=== PATIENT | female | born 1935 | race Caucasian/White ===

== ENCOUNTER 2019-10-27 11:27 | Inpatient (IN) | payer MEDICARE, MEDICAID ==
[~2019-10-27] VITALS: Ht 167.6 cm; Wt 70.3 kg
--- NOTE | 2019-10-27 11:43 | NUR ---
BIB EMS FROM [facility] FOR A FIB W/ RVR 70-180. PT STATES SHE HAD SOB STARTED AT MIDNIGHT AND PT HAS BEEN USING HER HOME O2 ON 4L NC INSTEAD OF 3L NC BASELINE. CXR AT [facility] SHOWED PNA. HX COPD AND A FIB. DENIES CP. VS COURTESY CLERK BP 108/62, HR 60-130, RR 22 UNLABORED. EKG COMPLETED. PT RESTING ON GURNEY. NADN. VSS. MONITORS APPLIED. ERP DR. GILSE AT BEDSIDE.
--- NOTE | 2019-10-27 11:51 | NUR ---
PT WAS GIVEN AN ALBUTEROL TREATMENT, LOVENOX, SOLUMEDROL, 1L NS, AND ZOFRAN AT [facility]. WAS NOT GIVEN ANY ABX. ERP AWARE.
--- NOTE | 2019-10-27 12:06 | NUR ---
REPORT GIVEN TO KASANDRA PEDERSON.
[2019-10-27 12:08] LABS: MEAN CORPUSCULAR HEMOGLOBIN 30.6 pg (27.0-34.8); MEAN CORPUSCULAR HGB CONC 32.8 g/dL (32.4-35.8); MEAN CORPUSCULAR VOLUME 93.2 fL (80-100); MEAN PLATELET VOLUME 9.8 fL (7.4-10.4); PLATELET COUNT 174 x10^3/uL (130-400); RED BLOOD COUNT 4.73 x10^6/uL (3.82-5.3); RED CELL DISTRIBUTION WIDTH 14.4 % (9.6-15.2)
[2019-10-27 12:19] LABS: ALANINE AMINOTRANSFERASE 23 U/L (12-78); ALBUMIN 3.1 g/dL (3.4-5.0); ANION GAP 10 mmol/L (5-15); CALCIUM 8.1 mg/dL (8.5-10.1); CHLORIDE 104 mmol/L (98-107); CREATININE 1.31 mg/dL (0.55-1.02)
[2019-10-27 12:24] LABS: ALKALINE PHOSPHATASE 80 U/L (45-117); BILIRUBIN,TOTAL 0.4 mg/dL (0.2-1.0); TOTAL PROTEIN 6.3 g/dL (6.4-8.2); TROPONIN I < 0.015 ng/mL (0.000-0.045)
[2019-10-27] MEDS ORDERED: CEFTRIAXONE PMX 1GM/50ML 50 ML IV ONE (12:30)
[2019-10-27] MEDS ORDERED: SODIUM CHLORIDE 0.9% 1,000ML IVBOLUS ONE (12:30)
[2019-10-27] MEDS ORDERED: DILTIAZEM 5 MG/ML, 5ML IVPush ONE (12:30)
[2019-10-27] MEDS ORDERED: PLEASE ENTER HEIGHT AND WEIGHT MC SCH (12:30)
[2019-10-27] MEDS ORDERED: AZITHROMYCIN 500 MG in SODIUM CHLORIDE 0.9% 250 ML IV ONE (12:30)
[2019-10-27] MEDS ORDERED: CEFTRIAXONE PMX 1GM/50ML 50 ML ONE (12:36)
[2019-10-27] MEDS ORDERED: DILTIAZEM 5 MG/ML, 5ML ONE (12:37)
[2019-10-27 12:41] LABS: BASOPHILS % (AUTO) 0 % (0-1); EOSINOPHILS % (AUTO) 0 % (1-7); LYMPHOCYTES # (AUTO) 0.22 x10^3/uL (1-3.4); LYMPHOCYTES % (AUTO) 3 % (22-44); MD SCAN; MONOCYTES # (AUTO) 0.09 x10^3/uL (0.2-0.8); MONOCYTES % (AUTO) 1 % (2-9); NEUTROPHILS # (AUTO) 7.59 x10^3/uL (1.8-6.8); NEUTROPHILS % (AUTO) 96 % (42-75)
--- NOTE | 2019-10-27 12:48 | NUR ---
Pt medicated per emar. VSS
--- NOTE | 2019-10-27 13:13 | NUR ---
Pt given a meal tray and at this time has tolerated po intake well.
--- NOTE | 2019-10-27 13:25 | NUR ---
pt medicated per emar.
[2019-10-27] MEDS ORDERED: LABETALOL 5MG/ML, 20ML IVPush PRN (13:30)
[2019-10-27] MEDS: HEPARIN 5,000 UNITS/ML, 1ML SQ SCH ×2 (13:30→20:51)
[2019-10-27] MEDS ORDERED: hydrALAzine 20 MG/ML, 1ML IVPush PRN (13:30)
[2019-10-27] MEDS ORDERED: ONDANSETRON 2MG/ML, 2ML IVPush PRN (13:30)
[2019-10-27] MEDS: CEFTRIAXONE PMX 1GM/50ML 50 ML IV SCH (13:30)
[2019-10-27] MEDS ORDERED: ALBUTEROL/IPRATROPIUM 2.5MG/0.5MG, 3 ML HHN SCH (13:30)
[2019-10-27] MEDS ORDERED: ONDANSETRON ODT 4 MG PO PRN (13:30)
[2019-10-27] MEDS ORDERED: SODIUM CHLORIDE 0.9% 1,000 ML IV SCH (13:30)
[2019-10-27] MEDS ORDERED: SIMV10TA3 PO (13:47)
[2019-10-27] MEDS ORDERED: LORA-445 PO (13:47)
[2019-10-27] MEDS ORDERED: HYDR-3240 PO (13:47)
[2019-10-27] MEDS ORDERED: ALBU0.63 NEB (13:47)
[2019-10-27] MEDS ORDERED: POTA99TA24 PO (13:47)
[2019-10-27] MEDS ORDERED: DILT60CA PO (13:47)
[2019-10-27] MEDS ORDERED: GABA300C10 PO (13:47)
[2019-10-27] MEDS ORDERED: FURO20TA3 PO (13:47)
[2019-10-27] MEDS ORDERED: methylPREDNISolone SOD SUCC 125 MG/2 ML ONE (13:53)
[2019-10-27] MEDS ORDERED: HEPARIN 5,000 UNITS/ML, 1ML ONE (13:53)
[2019-10-27] MEDS: methylPREDNISolone SOD SUCC 125 MG/2 ML IVPush SCH ×2 (13:56→20:51)
--- NOTE | 2019-10-27 13:57 | NUR ---
report to johan SLAUGHTER
--- NOTE | 2019-10-27 13:58 | NUR ---
spoke with provider regarding heparin dose. Pt recieved in [facility]. Per md austin to hold this dose until next dose.
[2019-10-27 14:18] VITALS: BP 111/67
[2019-10-27 14:29] LABS: TROPONIN I < 0.015 ng/mL (0.000-0.045)
[2019-10-27] MEDS ORDERED: ACETAMINOPHEN 325 MG TABLET ONE (15:24)
[2019-10-27] MEDS ORDERED: ACETAMINOPHEN 325 MG TABLET PO PRN (15:30)
[2019-10-27 15:51] LABS: RAPID INFLUENZA A Negative (Negative); RAPID INFLUENZA B Negative (Negative)
[2019-10-27] MEDS ORDERED: MAGNESIUM SULFATE 1 GM in SODIUM CHLORIDE 0.9% 50 ML IV ONE (16:00)
[2019-10-27] MEDS: DOXYCYCLINE 100 MG in DEXTROSE 5% 250 ML IV SCH (16:34)
[2019-10-27] MEDS: POTASSIUM CHLORIDE 20 MEQ TAB.ER.PRT PO SCH (17:24)
[2019-10-27] MEDS: GUAIFENESIN 200 MG TABLET PO SCH ×2 (17:24→20:51)
[2019-10-27 19:36] LABS: TROPONIN I < 0.015 ng/mL (0.000-0.045)
[2019-10-27] MEDS: METOPROLOL TARTRATE 25 MG TABLET PO SCH (20:52)
[2019-10-27 20:53] VITALS: BP 145/74
[2019-10-27] MEDS ORDERED: DOXYCYCLINE 100MG TABLET PO SCH (21:00)
[2019-10-27] MEDS ORDERED: METOPROLOL TARTRATE 25 MG TABLET PO SCH (21:00)
[2019-10-28 01:11] VITALS: BP 162/81
[2019-10-28] MEDS ORDERED: NITROGLYCERIN 0.4 MG BOTTLE (25 TABS) SL PRN (01:30)
[2019-10-28] MEDS ORDERED: NITROGLYCERIN 0.4 MG/SPRAY SL PRN (01:30)
[2019-10-28] MEDS ORDERED: ALBUTEROL SULFATE 2.5 MG/3 ML ONE (01:34)
[2019-10-28] MEDS: ALBUTEROL/IPRATROPIUM 2.5MG/0.5MG, 3 ML NPPB PRN ×3 (01:40→21:25)
[2019-10-28 01:42] LABS: TROPONIN I < 0.015 ng/mL (0.000-0.045)
[2019-10-28] MEDS ORDERED: FUROSEMIDE 20 MG/2 ML IV ONE (03:00)
[2019-10-28] MEDS: methylPREDNISolone SOD SUCC 125 MG/2 ML IVPush SCH ×4 (03:05→21:15)
[2019-10-28] MEDS: DOXYCYCLINE 100 MG in DEXTROSE 5% 250 ML IV SCH ×2 (04:00→15:53)
[2019-10-28] MEDS: HEPARIN 5,000 UNITS/ML, 1ML SQ SCH ×3 (05:31→21:37)
[2019-10-28] MEDS: GUAIFENESIN 200 MG TABLET PO SCH ×4 (05:31→21:00)
[2019-10-28 06:24] LABS: BASOPHILS % (AUTO) 0 % (0-1); EOSINOPHILS # (AUTO) 0.04 x10^3/uL (0-0.4); EOSINOPHILS % (AUTO) 1 % (1-7); LYMPHOCYTES # (AUTO) 0.59 x10^3/uL (1-3.4); LYMPHOCYTES % (AUTO) 8 % (22-44); MD NO; MEAN CORPUSCULAR HEMOGLOBIN 30.2 pg (27.0-34.8); MEAN CORPUSCULAR HGB CONC 32.3 g/dL (32.4-35.8); MEAN CORPUSCULAR VOLUME 93.6 fL (80-100); MEAN PLATELET VOLUME 9.9 fL (7.4-10.4); MONOCYTES # (AUTO) 0.27 x10^3/uL (0.2-0.8); MONOCYTES % (AUTO) 3 % (2-9); NEUTROPHILS # (AUTO) 6.94 x10^3/uL (1.8-6.8); NEUTROPHILS % (AUTO) 89 % (42-75); PLATELET COUNT 200 x10^3/uL (130-400); RED BLOOD COUNT 4.95 x10^6/uL (3.82-5.3); RED CELL DISTRIBUTION WIDTH 14.6 % (9.6-15.2)
[2019-10-28 06:36] LABS: ALBUMIN 3.4 g/dL (3.4-5.0); ANION GAP 6 mmol/L (5-15); CALCIUM 9.2 mg/dL (8.5-10.1); CHLORIDE 104 mmol/L (98-107)
[2019-10-28 06:40] LABS: ALANINE AMINOTRANSFERASE 50 U/L (12-78); ALKALINE PHOSPHATASE 86 U/L (45-117); BILIRUBIN,TOTAL 0.4 mg/dL (0.2-1.0); CREATININE 1.36 mg/dL (0.55-1.02); TOTAL PROTEIN 7.2 g/dL (6.4-8.2)
[2019-10-28 06:54] VITALS: BP 141/91
[2019-10-28] MEDS: ASPIRIN 81 MG TABLET CHEW PO SCH (08:25)
[2019-10-28] MEDS: POTASSIUM CHLORIDE 20 MEQ TAB.ER.PRT PO SCH ×2 (08:25→15:53)
[2019-10-28] MEDS: METOPROLOL TARTRATE 25 MG TABLET PO SCH ×2 (08:26→21:16)
[2019-10-28] MEDS ORDERED: MAGNESIUM SULFATE PMX 2GM/50ML 50 ML IV ONE (09:30)
[2019-10-28] MEDS ORDERED: PROCHLORPERAZINE 5 MG TABLET PO PRN (12:30)
[2019-10-28] MEDS: CEFTRIAXONE PMX 1GM/50ML 50 ML IV SCH (14:08)
[2019-10-28 15:57] VITALS: BP 157/96
[2019-10-28 18:38] VITALS: BP 155/98
[2019-10-28] MEDS: MELATONIN 3 MG TABLET PO PRN (21:16)
[2019-10-29 01:56] VITALS: BP 156/105
[2019-10-29] MEDS ORDERED: LORazepam 2 MG/ML, 1ML IVPush ONE (02:30)
[2019-10-29] MEDS ORDERED: LORazepam 2 MG/ML, 1ML ONE (02:35)
[2019-10-29] MEDS: methylPREDNISolone SOD SUCC 125 MG/2 ML IVPush SCH ×3 (03:47→22:17)
[2019-10-29] MEDS: DOXYCYCLINE 100 MG in DEXTROSE 5% 250 ML IV SCH ×2 (04:05→16:10)
[2019-10-29 04:17] LABS: BASOPHILS # (AUTO) 0.01 x10^3/uL (0-0.1); BASOPHILS % (AUTO) 0 % (0-1); EOSINOPHILS % (AUTO) 0 % (1-7); LYMPHOCYTES # (AUTO) 0.81 x10^3/uL (1-3.4); LYMPHOCYTES % (AUTO) 5 % (22-44); MD NO; MEAN CORPUSCULAR HGB CONC 32.9 g/dL (32.4-35.8); MEAN CORPUSCULAR VOLUME 91.3 fL (80-100); MEAN PLATELET VOLUME 10.2 fL (7.4-10.4); MONOCYTES # (AUTO) 0.63 x10^3/uL (0.2-0.8); MONOCYTES % (AUTO) 4 % (2-9); NEUTROPHILS # (AUTO) 14.83 x10^3/uL (1.8-6.8); NEUTROPHILS % (AUTO) 91 % (42-75); PLATELET COUNT 223 x10^3/uL (130-400); RED BLOOD COUNT 4.67 x10^6/uL (3.82-5.3); RED CELL DISTRIBUTION WIDTH 14.7 % (9.6-15.2)
[2019-10-29 04:26] LABS: ALANINE AMINOTRANSFERASE 183 U/L (12-78); ALBUMIN 3.1 g/dL (3.4-5.0); ANION GAP 8 mmol/L (5-15); CALCIUM 9.3 mg/dL (8.5-10.1); CHLORIDE 105 mmol/L (98-107); CREATININE 1.26 mg/dL (0.55-1.02)
[2019-10-29 04:28] LABS: ALKALINE PHOSPHATASE 82 U/L (45-117); BILIRUBIN,TOTAL 0.2 mg/dL (0.2-1.0); TOTAL PROTEIN 6.5 g/dL (6.4-8.2)
[2019-10-29 06:26] VITALS: BP 124/69
[2019-10-29] MEDS: ALBUTEROL/IPRATROPIUM 2.5MG/0.5MG, 3 ML NPPB SCH ×5 (07:00→22:36)
[2019-10-29] MEDS: GUAIFENESIN 200 MG TABLET PO SCH ×4 (07:01→22:17)
[2019-10-29] MEDS: HEPARIN 5,000 UNITS/ML, 1ML SQ SCH (07:01)
[2019-10-29] MEDS ORDERED: LORazepam 0.5MG TABLET PO SCH (08:00)
[2019-10-29] MEDS ORDERED: HYDROcodone/APAP 5/325 TABLET PO PRN (08:00)
[2019-10-29] MEDS: POTASSIUM CHLORIDE 20 MEQ TAB.ER.PRT PO SCH ×2 (08:16→16:10)
[2019-10-29] MEDS: FUROSEMIDE 20 MG TABLET PO SCH (08:17)
[2019-10-29] MEDS: ASPIRIN 81 MG TABLET CHEW PO SCH (08:17)
[2019-10-29] MEDS ORDERED: POTASSIUM GLUCONATE MC SCH (08:30)
[2019-10-29] MEDS ORDERED: HEPARIN 5,000 UNITS/ML, 1ML IV PRN (09:00)
[2019-10-29] MEDS ORDERED: DILTIAZEM 60 MG CAP.ER.12H PO SCH (09:00)
[2019-10-29] MEDS ORDERED: POTASSIUM GLUCONATE PO SCH (09:00)
[2019-10-29] MEDS: HEPARIN 25,000 UNITS/500ML PMX 500 ML IV PRN (10:25)
[2019-10-29 12:20] VITALS: BP 169/86
[2019-10-29] MEDS ORDERED: DILT180C53 PO (13:02)
[2019-10-29] MEDS ORDERED: FLUT1DIS3 INH (13:02)
[2019-10-29] MEDS: CEFTRIAXONE PMX 1GM/50ML 50 ML IV SCH (13:22)
[2019-10-29] MEDS ORDERED: methylPREDNISolone SOD SUCC 125 MG/2 ML IVPush SCH (13:30)
[2019-10-29] MEDS: LORazepam 0.5MG TABLET PO PRN (14:25)
[2019-10-29] MEDS: BUDESONIDE 0.5 MG/2 ML INHA INH SCH ×2 (16:33→22:36)
[2019-10-29 20:10] VITALS: BP_SYST 172; BP_SYST 179; BP_DIAS 77; BP_DIAS 98
[2019-10-29] MEDS: GABAPENTIN 300 MG CAPSULE PO SCH (22:17)
[2019-10-29] MEDS: DILTIAZEM 90 MG CAP.ER.12H PO SCH (22:18)
[2019-10-29] MEDS: SIMVASTATIN 10 MG TABLET PO SCH (22:18)
[2019-10-29 22:23] VITALS: BP 161/98
[2019-10-29] MEDS: MELATONIN 3 MG TABLET PO PRN (22:28)
[2019-10-30 00:49] VITALS: BP 147/96
[2019-10-30] MEDS: ALBUTEROL/IPRATROPIUM 2.5MG/0.5MG, 3 ML NPPB SCH ×6 (02:33→23:00)
[2019-10-30] MEDS: DOXYCYCLINE 100 MG in DEXTROSE 5% 250 ML IV SCH ×2 (03:28→18:20)
[2019-10-30] MEDS: methylPREDNISolone SOD SUCC 125 MG/2 ML IVPush SCH ×3 (04:36→22:08)
[2019-10-30 06:11] LABS: BASOPHILS % (AUTO) 0 % (0-1); EOSINOPHILS % (AUTO) 0 % (1-7); LYMPHOCYTES % (AUTO) 5 % (22-44); MD NO; MEAN CORPUSCULAR HGB CONC 32.8 g/dL (32.4-35.8); MEAN CORPUSCULAR VOLUME 91.4 fL (80-100); MEAN PLATELET VOLUME 10.3 fL (7.4-10.4); MONOCYTES # (AUTO) 0.63 x10^3/uL (0.2-0.8); MONOCYTES % (AUTO) 5 % (2-9); NEUTROPHILS % (AUTO) 90 % (42-75); PLATELET COUNT 238 x10^3/uL (130-400); RED BLOOD COUNT 4.89 x10^6/uL (3.82-5.3); RED CELL DISTRIBUTION WIDTH 14.6 % (9.6-15.2)
[2019-10-30 06:13] LABS: ALANINE AMINOTRANSFERASE 138 U/L (12-78); ALBUMIN 3.2 g/dL (3.4-5.0); ANION GAP 7 mmol/L (5-15); CALCIUM 9.4 mg/dL (8.5-10.1); CHLORIDE 103 mmol/L (98-107); CREATININE 1.38 mg/dL (0.55-1.02)
[2019-10-30 06:14] VITALS: BP 149/97
[2019-10-30 06:15] LABS: ALKALINE PHOSPHATASE 81 U/L (45-117); BILIRUBIN,TOTAL 0.3 mg/dL (0.2-1.0); TOTAL PROTEIN 6.5 g/dL (6.4-8.2)
[2019-10-30] MEDS: FUROSEMIDE 20 MG TABLET PO SCH (06:16)
[2019-10-30] MEDS: GUAIFENESIN 200 MG TABLET PO SCH ×4 (06:16→21:25)
[2019-10-30 07:01] VITALS: BP 138/84
[2019-10-30] MEDS: DILTIAZEM 90 MG CAP.ER.12H PO SCH ×2 (10:40→21:25)
[2019-10-30] MEDS: POTASSIUM CHLORIDE 20 MEQ TAB.ER.PRT PO SCH ×2 (10:40→16:57)
[2019-10-30] MEDS: HEPARIN 25,000 UNITS/500ML PMX 500 ML IV PRN (12:55)
[2019-10-30 15:00] VITALS: BP 141/78
[2019-10-30] MEDS: CEFTRIAXONE PMX 1GM/50ML 50 ML IV SCH (16:57)
[2019-10-30] MEDS: BUDESONIDE 0.5 MG/2 ML INHA INH SCH (19:45)
[2019-10-30 21:22] VITALS: BP 140/75
[2019-10-30] MEDS: GABAPENTIN 300 MG CAPSULE PO SCH (21:25)
[2019-10-30] MEDS: SIMVASTATIN 10 MG TABLET PO SCH (21:25)
[2019-10-31] VITALS (7 sets, daily range): BP systolic 129–164; BP diastolic 67–81
[2019-10-31] MEDS: ALBUTEROL/IPRATROPIUM 2.5MG/0.5MG, 3 ML NPPB SCH ×6 (03:55→22:53)
[2019-10-31] MEDS: GUAIFENESIN 200 MG TABLET PO SCH ×4 (05:04→23:26)
[2019-10-31] MEDS: methylPREDNISolone SOD SUCC 125 MG/2 ML IVPush SCH ×5 (05:05→23:26)
[2019-10-31] MEDS: DOXYCYCLINE 100 MG in DEXTROSE 5% 250 ML IV SCH ×2 (05:05→17:08)
[2019-10-31 05:59] LABS: ALBUMIN 3.2 g/dL (3.4-5.0); ANION GAP 7 mmol/L (5-15); BASOPHILS % (AUTO) 0 % (0-1); CALCIUM 9.8 mg/dL (8.5-10.1); CHLORIDE 104 mmol/L (98-107); EOSINOPHILS % (AUTO) 0 % (1-7); LYMPHOCYTES # (AUTO) 0.74 x10^3/uL (1-3.4); LYMPHOCYTES % (AUTO) 7 % (22-44); MD NO; MEAN CORPUSCULAR HGB CONC 32.5 g/dL (32.4-35.8); MEAN CORPUSCULAR VOLUME 92.4 fL (80-100); MEAN PLATELET VOLUME 10.1 fL (7.4-10.4); MONOCYTES # (AUTO) 0.37 x10^3/uL (0.2-0.8); MONOCYTES % (AUTO) 4 % (2-9); NEUTROPHILS # (AUTO) 8.86 x10^3/uL (1.8-6.8); NEUTROPHILS % (AUTO) 89 % (42-75); PLATELET COUNT 243 x10^3/uL (130-400); RED BLOOD COUNT 4.82 x10^6/uL (3.82-5.3); RED CELL DISTRIBUTION WIDTH 14.4 % (9.6-15.2)
[2019-10-31 06:06] LABS: ALANINE AMINOTRANSFERASE 114 U/L (12-78); ALKALINE PHOSPHATASE 79 U/L (45-117); BILIRUBIN,TOTAL 0.4 mg/dL (0.2-1.0); TOTAL PROTEIN 6.6 g/dL (6.4-8.2)
[2019-10-31] MEDS: POTASSIUM CHLORIDE 20 MEQ TAB.ER.PRT PO SCH ×2 (09:55→17:03)
[2019-10-31] MEDS: FUROSEMIDE 20 MG TABLET PO SCH (09:55)
[2019-10-31] MEDS: DILTIAZEM 90 MG CAP.ER.12H PO SCH ×2 (09:55→20:09)
[2019-10-31] MEDS: LORazepam 0.5MG TABLET PO PRN ×2 (09:55→17:08)
[2019-10-31] MEDS: BUDESONIDE 0.5 MG/2 ML INHA INH SCH ×2 (11:06→18:53)
[2019-10-31] MEDS ORDERED: FUROSEMIDE 20 MG/2 ML IV ONE ×2 (15:30→23:30)
[2019-10-31] MEDS: CEFTRIAXONE PMX 1GM/50ML 50 ML IV SCH (15:35)
[2019-10-31] MEDS: APIXABAN 2.5 MG TABLET PO SCH ×2 (17:03→20:52)
[2019-10-31] MEDS: GABAPENTIN 300 MG CAPSULE PO SCH (20:09)
[2019-10-31] MEDS: SIMVASTATIN 10 MG TABLET PO SCH (20:10)
[2019-10-31] MEDS ORDERED: APIXABAN 2.5 MG TABLET PO SCH ×2 (21:00)
[2019-10-31] MEDS: MELATONIN 3 MG TABLET PO PRN (23:48)
[2019-11-01 00:29] VITALS: BP 148/80
[2019-11-01] MEDS: ALBUTEROL/IPRATROPIUM 2.5MG/0.5MG, 3 ML NPPB SCH ×6 (02:33→19:21)
[2019-11-01] MEDS: DOXYCYCLINE 100 MG in DEXTROSE 5% 250 ML IV SCH ×2 (05:15→16:16)
[2019-11-01] MEDS: methylPREDNISolone SOD SUCC 125 MG/2 ML IVPush SCH ×4 (05:34→21:52)
[2019-11-01] MEDS: GUAIFENESIN 200 MG TABLET PO SCH ×4 (05:34→21:52)
[2019-11-01 05:51] LABS: BASOPHILS # (AUTO) 0.01 x10^3/uL (0-0.1); BASOPHILS % (AUTO) 0 % (0-1); EOSINOPHILS % (AUTO) 0 % (1-7); LYMPHOCYTES # (AUTO) 0.75 x10^3/uL (1-3.4); LYMPHOCYTES % (AUTO) 8 % (22-44); MD NO; MEAN CORPUSCULAR HEMOGLOBIN 29.7 pg (27.0-34.8); MEAN CORPUSCULAR HGB CONC 32.9 g/dL (32.4-35.8); MEAN CORPUSCULAR VOLUME 90.3 fL (80-100); MEAN PLATELET VOLUME 9.9 fL (7.4-10.4); MONOCYTES # (AUTO) 0.33 x10^3/uL (0.2-0.8); MONOCYTES % (AUTO) 4 % (2-9); NEUTROPHILS # (AUTO) 7.95 x10^3/uL (1.8-6.8); NEUTROPHILS % (AUTO) 88 % (42-75); PLATELET COUNT 241 x10^3/uL (130-400); RED BLOOD COUNT 4.71 x10^6/uL (3.82-5.3); RED CELL DISTRIBUTION WIDTH 14.4 % (9.6-15.2)
[2019-11-01 06:06] LABS: ANION GAP 8 mmol/L (5-15); CALCIUM 9.4 mg/dL (8.5-10.1); CHLORIDE 99 mmol/L (98-107); CREATININE 1.92 mg/dL (0.55-1.02)
[2019-11-01 06:57] VITALS: BP 144/73
[2019-11-01] MEDS: BUDESONIDE 0.5 MG/2 ML INHA INH SCH ×2 (07:20→19:03)
[2019-11-01] MEDS ORDERED: OMEPRAZOLE 20 MG CAPSULE.DR ONE (08:28)
[2019-11-01] MEDS ORDERED: PHARMACY MAY ADJ FOR RENAL FX MC PRN (08:30)
[2019-11-01] MEDS: APIXABAN 2.5 MG TABLET PO SCH ×2 (08:30→21:52)
[2019-11-01] MEDS: OMEPRAZOLE 20 MG CAPSULE.DR PO SCH (08:30)
[2019-11-01] MEDS: DILTIAZEM 90 MG CAP.ER.12H PO SCH ×2 (08:31→21:52)
[2019-11-01] MEDS ORDERED: FUROSEMIDE 20 MG/2 ML IV SCH (09:00)
[2019-11-01 09:59] LABS: CREATININE,URINE RANDOM 47.7 mg/dL
[2019-11-01] MEDS: CEFTRIAXONE PMX 1GM/50ML 50 ML IV SCH (14:05)
[2019-11-01 14:31] VITALS: BP 135/71
[2019-11-01 18:31] VITALS: BP 150/78
[2019-11-01] MEDS: SIMVASTATIN 10 MG TABLET PO SCH (21:52)
[2019-11-01] MEDS: GABAPENTIN 300 MG CAPSULE PO SCH (21:52)
[2019-11-01] MEDS: MELATONIN 3 MG TABLET PO PRN (22:08)
[2019-11-02 01:34] VITALS: BP 143/84
[2019-11-02 04:58] LABS: BASOPHILS % (AUTO) 0 % (0-1); EOSINOPHILS # (AUTO) 0.03 x10^3/uL (0-0.4); EOSINOPHILS % (AUTO) 0 % (1-7); LYMPHOCYTES # (AUTO) 0.66 x10^3/uL (1-3.4); LYMPHOCYTES % (AUTO) 7 % (22-44); MD NO; MEAN CORPUSCULAR HEMOGLOBIN 29.6 pg (27.0-34.8); MEAN CORPUSCULAR HGB CONC 32.6 g/dL (32.4-35.8); MEAN CORPUSCULAR VOLUME 90.9 fL (80-100); MEAN PLATELET VOLUME 9.8 fL (7.4-10.4); MONOCYTES # (AUTO) 0.34 x10^3/uL (0.2-0.8); MONOCYTES % (AUTO) 4 % (2-9); NEUTROPHILS # (AUTO) 8.13 x10^3/uL (1.8-6.8); NEUTROPHILS % (AUTO) 89 % (42-75); PLATELET COUNT 247 x10^3/uL (130-400); RED CELL DISTRIBUTION WIDTH 14.4 % (9.6-15.2)
[2019-11-02] MEDS: GUAIFENESIN 200 MG TABLET PO SCH ×4 (05:05→20:45)
[2019-11-02] MEDS: DOXYCYCLINE 100 MG in DEXTROSE 5% 250 ML IV SCH ×2 (05:05→16:39)
[2019-11-02] MEDS: methylPREDNISolone SOD SUCC 125 MG/2 ML IVPush SCH ×4 (05:05→20:44)
[2019-11-02] MEDS: OMEPRAZOLE 20 MG CAPSULE.DR PO SCH (05:05)
[2019-11-02 05:16] LABS: ANION GAP 5 mmol/L (5-15); CALCIUM 9.2 mg/dL (8.5-10.1); CHLORIDE 100 mmol/L (98-107)
[2019-11-02 05:18] LABS: CREATININE 2.15 mg/dL (0.55-1.02)
[2019-11-02] MEDS: ALBUTEROL/IPRATROPIUM 2.5MG/0.5MG, 3 ML NPPB SCH ×4 (06:59→19:32)
[2019-11-02] MEDS ORDERED: SODIUM CHLORIDE 0.9% 1,000 ML IV SCH (07:30)
[2019-11-02] MEDS: APIXABAN 2.5 MG TABLET PO SCH ×2 (07:32→20:45)
[2019-11-02] MEDS: DILTIAZEM 90 MG CAP.ER.12H PO SCH ×2 (07:32→20:45)
[2019-11-02 07:39] VITALS: BP 146/78
[2019-11-02] MEDS: BUDESONIDE 0.5 MG/2 ML INHA INH SCH ×2 (09:00→19:32)
[2019-11-02] MEDS: CEFTRIAXONE PMX 1GM/50ML 50 ML IV SCH (13:30)
[2019-11-02 13:50] VITALS: BP 138/86
[2019-11-02] MEDS: LORazepam 0.5MG TABLET PO PRN (19:20)
[2019-11-02 20:35] VITALS: BP 140/73
[2019-11-02] MEDS: GABAPENTIN 300 MG CAPSULE PO SCH (20:44)
[2019-11-02] MEDS: SIMVASTATIN 10 MG TABLET PO SCH (20:45)
[2019-11-03] VITALS (9 sets, daily range): BP systolic 119–160; BP diastolic 64–78
[2019-11-03] MEDS: GUAIFENESIN 200 MG TABLET PO SCH ×4 (04:59→20:30)
[2019-11-03] MEDS: OMEPRAZOLE 20 MG CAPSULE.DR PO SCH (04:59)
[2019-11-03] MEDS: DOXYCYCLINE 100 MG in DEXTROSE 5% 250 ML IV SCH ×2 (04:59→16:43)
[2019-11-03] MEDS: methylPREDNISolone SOD SUCC 125 MG/2 ML IVPush SCH ×4 (05:00→20:31)
[2019-11-03] MEDS: LORazepam 0.5MG TABLET PO PRN (05:13)
[2019-11-03] MEDS: ALBUTEROL/IPRATROPIUM 2.5MG/0.5MG, 3 ML NPPB SCH ×4 (05:24→20:30)
[2019-11-03] MEDS: BUDESONIDE 0.5 MG/2 ML INHA INH SCH ×2 (05:25→20:30)
[2019-11-03 05:26] LABS: BASOPHILS % (AUTO) 0 % (0-1); EOSINOPHILS % (AUTO) 0 % (1-7); LYMPHOCYTES # (AUTO) 0.48 x10^3/uL (1-3.4); LYMPHOCYTES % (AUTO) 4 % (22-44); MD NO; MEAN CORPUSCULAR HEMOGLOBIN 29.6 pg (27.0-34.8); MEAN CORPUSCULAR HGB CONC 32.5 g/dL (32.4-35.8); MEAN CORPUSCULAR VOLUME 91.3 fL (80-100); MEAN PLATELET VOLUME 9.7 fL (7.4-10.4); MONOCYTES # (AUTO) 0.44 x10^3/uL (0.2-0.8); MONOCYTES % (AUTO) 4 % (2-9); NEUTROPHILS # (AUTO) 10.12 x10^3/uL (1.8-6.8); NEUTROPHILS % (AUTO) 92 % (42-75); PLATELET COUNT 241 x10^3/uL (130-400); RED CELL DISTRIBUTION WIDTH 14.4 % (9.6-15.2)
[2019-11-03 05:35] LABS: ALBUMIN 2.7 g/dL (3.4-5.0); ANION GAP 10 mmol/L (5-15); CALCIUM 8.7 mg/dL (8.5-10.1); CHLORIDE 103 mmol/L (98-107); CREATININE 1.91 mg/dL (0.55-1.02)
[2019-11-03] MEDS: DILTIAZEM 90 MG CAP.ER.12H PO SCH ×2 (07:47→20:30)
[2019-11-03] MEDS: APIXABAN 2.5 MG TABLET PO SCH ×2 (07:47→20:31)
--- NOTE | 2019-11-03 08:06 | NUR ---
BRENDA CASIANO - Fall Risk Medication(s) present and receiving anticoagulants.
[2019-11-03] MEDS: CEFTRIAXONE PMX 1GM/50ML 50 ML IV SCH (13:28)
[2019-11-03] MEDS: SIMVASTATIN 10 MG TABLET PO SCH (20:30)
[2019-11-03] MEDS: GABAPENTIN 300 MG CAPSULE PO SCH (20:31)
[2019-11-04] VITALS (7 sets, daily range): BP systolic 134–164; BP diastolic 66–80
[2019-11-04] MEDS: DOXYCYCLINE 100 MG in DEXTROSE 5% 250 ML IV SCH (04:53)
[2019-11-04 05:18] LABS: BASOPHILS # (AUTO) 0.01 x10^3/uL (0-0.1); BASOPHILS % (AUTO) 0 % (0-1); EOSINOPHILS % (AUTO) 0 % (1-7); LYMPHOCYTES # (AUTO) 0.45 x10^3/uL (1-3.4); LYMPHOCYTES % (AUTO) 3 % (22-44); MD NO; MEAN CORPUSCULAR HEMOGLOBIN 29.6 pg (27.0-34.8); MEAN CORPUSCULAR HGB CONC 32.4 g/dL (32.4-35.8); MEAN CORPUSCULAR VOLUME 91.3 fL (80-100); MEAN PLATELET VOLUME 9.4 fL (7.4-10.4); MONOCYTES # (AUTO) 0.45 x10^3/uL (0.2-0.8); MONOCYTES % (AUTO) 3 % (2-9); NEUTROPHILS # (AUTO) 13.81 x10^3/uL (1.8-6.8); NEUTROPHILS % (AUTO) 94 % (42-75); PLATELET COUNT 309 x10^3/uL (130-400); RED BLOOD COUNT 4.57 x10^6/uL (3.82-5.3); RED CELL DISTRIBUTION WIDTH 14.1 % (9.6-15.2)
[2019-11-04] MEDS: OMEPRAZOLE 20 MG CAPSULE.DR PO SCH (05:25)
[2019-11-04] MEDS: methylPREDNISolone SOD SUCC 125 MG/2 ML IVPush SCH ×4 (05:25→21:42)
[2019-11-04] MEDS: GUAIFENESIN 200 MG TABLET PO SCH ×4 (05:25→21:42)
[2019-11-04 05:26] LABS: ANION GAP 9 mmol/L (5-15); CALCIUM 8.7 mg/dL (8.5-10.1); CHLORIDE 103 mmol/L (98-107)
[2019-11-04 05:27] LABS: CREATININE 1.79 mg/dL (0.55-1.02)
[2019-11-04] MEDS: ALBUTEROL/IPRATROPIUM 2.5MG/0.5MG, 3 ML NPPB SCH ×3 (07:25→19:41)
[2019-11-04] MEDS: BUDESONIDE 0.5 MG/2 ML INHA INH SCH ×2 (07:25→19:41)
[2019-11-04] MEDS: DILTIAZEM 90 MG CAP.ER.12H PO SCH ×2 (10:01→21:42)
[2019-11-04] MEDS: APIXABAN 2.5 MG TABLET PO SCH ×2 (10:01→21:42)
[2019-11-04 11:49] LABS: CHOL/HDL RATIO 2.7; LDL/HDL RATIO 1.6 (0.5-3.0)
[2019-11-04] MEDS ORDERED: ATORVASTATIN 20 MG TABLET PO SCH (21:00)
[2019-11-04] MEDS: GABAPENTIN 300 MG CAPSULE PO SCH (21:42)
[2019-11-05 01:46] VITALS: BP 142/78
[2019-11-05] MEDS: GUAIFENESIN 200 MG TABLET PO SCH ×2 (05:44→11:00)
[2019-11-05] MEDS: methylPREDNISolone SOD SUCC 125 MG/2 ML IVPush SCH ×2 (05:45→11:00)
[2019-11-05] MEDS: OMEPRAZOLE 20 MG CAPSULE.DR PO SCH (05:45)
[2019-11-05 05:47] LABS: BASOPHILS # (AUTO) 0.01 x10^3/uL (0-0.1); BASOPHILS % (AUTO) 0 % (0-1); EOSINOPHILS % (AUTO) 0 % (1-7); LYMPHOCYTES # (AUTO) 0.43 x10^3/uL (1-3.4); LYMPHOCYTES % (AUTO) 3 % (22-44); MD NO; MEAN CORPUSCULAR HGB CONC 32.9 g/dL (32.4-35.8); MEAN CORPUSCULAR VOLUME 90.9 fL (80-100); MEAN PLATELET VOLUME 9.1 fL (7.4-10.4); MONOCYTES # (AUTO) 0.37 x10^3/uL (0.2-0.8); MONOCYTES % (AUTO) 3 % (2-9); NEUTROPHILS # (AUTO) 13.05 x10^3/uL (1.8-6.8); NEUTROPHILS % (AUTO) 94 % (42-75); PLATELET COUNT 344 x10^3/uL (130-400); RED BLOOD COUNT 4.61 x10^6/uL (3.82-5.3); RED CELL DISTRIBUTION WIDTH 14.2 % (9.6-15.2)
[2019-11-05 05:53] LABS: CHLORIDE 105 mmol/L (98-107)
[2019-11-05 05:57] LABS: ALBUMIN 2.7 g/dL (3.4-5.0); ANION GAP 6 mmol/L (5-15); CALCIUM 9.2 mg/dL (8.5-10.1); CREATININE 1.54 mg/dL (0.55-1.02)
[2019-11-05 06:33] VITALS: BP 148/73
[2019-11-05] MEDS: ALBUTEROL/IPRATROPIUM 2.5MG/0.5MG, 3 ML NPPB SCH ×3 (07:15→15:50)
[2019-11-05] MEDS: BUDESONIDE 0.5 MG/2 ML INHA INH SCH (07:15)
[2019-11-05] MEDS ORDERED: ATOR20TA37 PO (08:49)
[2019-11-05] MEDS ORDERED: APIX2.5T PO (08:49)
[2019-11-05] MEDS ORDERED: PRED10TA PO (08:49)
[2019-11-05] MEDS ORDERED: OMEP-110 PO (08:49)
[2019-11-05] MEDS ORDERED: IPRA3AMP30 NPPB (08:49)
[2019-11-05] MEDS ORDERED: GUAI200T37 PO (08:49)
[2019-11-05] MEDS: DILTIAZEM 90 MG CAP.ER.12H PO SCH (09:01)
[2019-11-05] MEDS: APIXABAN 2.5 MG TABLET PO SCH (09:01)
[2019-11-05] MEDS: LORazepam 0.5MG TABLET PO PRN (09:18)
[2019-11-05 12:54] VITALS: BP 137/70
== END 2019-11-05 16:54 | disposition home health service (06) | DRG 291 ==
LOC: ED 12:22 → EDIP 12:23 → 5SO 14:10 → DCLOUNGE 11-05 16:33
PROVIDERS: ADMIT Internal Medicine; ATTEND Hospitalist
DX: I13.0 Hypertensive heart and chronic kidney disease with heart failure and stage 1 through stage 4 chronic kidney disease, or unspecified chronic kidney disease (principal); J96.21 Acute and chronic respiratory failure with hypoxia; I50.31 Acute diastolic (congestive) heart failure; J18.9 Pneumonia, unspecified organism; J44.1 Chronic obstructive pulmonary disease with (acute) exacerbation; E87.2 Acidosis; D68.69 Other thrombophilia; J44.0 Chronic obstructive pulmonary disease with (acute) lower respiratory infection; E46 Unspecified protein-calorie malnutrition; N17.9 Acute kidney failure, unspecified; G45.9 Transient cerebral ischemic attack, unspecified; J20.9 Acute bronchitis, unspecified; I48.0 Paroxysmal atrial fibrillation; E78.5 Hyperlipidemia, unspecified; E87.6 Hypokalemia; E83.51 Hypocalcemia; Z68.25 Body mass index [BMI] 25.0-25.9, adult; Z88.6 Allergy status to analgesic agent; Z91.048 Other nonmedicinal substance allergy status; F41.9 Anxiety disorder, unspecified; N18.9 Chronic kidney disease, unspecified; Z79.01 Long term (current) use of anticoagulants; Z79.899 Other long term (current) drug therapy; Z87.891 Personal history of nicotine dependence; T38.0X5A Adverse effect of glucocorticoids and synthetic analogues, initial encounter
CPT/HCPCS: 36415; 36600; 70450; 70551; 71045; 71260; 80048; 80053; 80061; 82040; 82570; 82803; 82962; 83036; 83605; 83735; 83880; 84100; 84145; 84300; 84443; 84484; 85025; 85520; 87040; 87070; 87077; 87205; 87400; 93005; 93306; 93308; 93880; 94640; 94667; 94668; 96365; 96368; 96375; G0378; J0456; J0696; J1644; J3475; J7060; J7620; J7626; J0360; J1940; J2060; J2930; J7030; J7050